=== PATIENT | female | born 1980 | race Caucasian/White ===

== ENCOUNTER 2022-04-06 16:59 | Outpatient (CLI) | payer OTHER, SELFPAY | END 2022-04-06 17:00 | disposition home or self-care (01) | PROVIDERS: PCP Physician Assistant Medical; Visit Provider Physician Assistant | DX: Z01.419 Encounter for gynecological examination (general) (routine) without abnormal findings (principal); Z12.4 Encounter for screening for malignant neoplasm of cervix; Z11.3 Encounter for screening for infections with a predominantly sexual mode of transmission | CPT/HCPCS: 87624; 88175 ==

== ENCOUNTER 2022-07-01 15:20 | Outpatient (CLI) | payer OTHER, SELFPAY ==
--- NOTE | 2022-07-01 15:40 | CRLHL7_ITS ---
For Patients: As a result of the Century Cures Act, medical imaging exams and procedure reports are released immediately into your electronic medical record. You may view this report before your referring provider. If you have questions, please contact your health care provider. BILATERAL SCREENING MAMMOGRAM WITH COMPUTER-AIDED DETECTION TECHNIQUE: CC and MLO views were obtained. These mammographic images have been obtained using full-field digital technique. These mammographic images were interpreted with the benefit of computer-aided detection. COMPARISON FILM: None. Baseline study. FINDINGS: The breasts are almost entirely fatty. IMPRESSION: There is no radiographic evidence for malignancy. ASSESSMENT: BI-RADS Category 1: Negative RECOMMENDATION: Routine screening mammogram in 1 year. A lay language report of this examination will be provided to the patient. ANDREA OSMAN M.D. Diagnostic/Nuclear Medicine Radiologist [email or web address] MEGHAN:[email or web address] Transcribed: 07/02/2022, 4:[address]/Dictated by: Andrea Osman MD @ 07/02/2022 9:14:00 AM (Electronically Signed)
== END 2022-07-01 15:21 | disposition home or self-care (01) ==
LOC: MAMMO 15:24
PROVIDERS: Visit Provider Physician Assistant
DX: Z12.31 Encounter for screening mammogram for malignant neoplasm of breast (principal)
CPT/HCPCS: 77067

== ENCOUNTER 2024-12-18 08:42 | Emergency (ER) | payer BC, SELFPAY ==
[2024-12-18 08:45] VITALS: BP 120/81; PULSE 107; RESP 18; TEMP 37.2; O2SAT 100; BMI 25.8
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
--- NOTE | 2024-12-18 09:08 | ED_ITS ---
HPI - General Adult General Chief complaint: Abdominal Pain Stated complaint: abdominal pain Time Seen by Provider: 12/18/24 08:53 Source: patient Mode of arrival: ambulatory Limitations: no limitations History of Present Illness HPI narrative: 44-year-old female presenting today with lower abdominal pain is present for 2 days. Moving makes it worse. Sitting still makes it better. She denies fevers or chills. Daily bowel movements have been soft. No mucus or blood in her stools. She denies any urinary symptoms such as increased frequency or urgency. No dysuria. Patient denies . She has been very nauseated today. States that this is very similar to when she had diverticulitis in the past. She has been trying to do some bowel rest over the last 24 hours her pain has been getting a little bit worse. She has required antibiotics in the past for symptom improvement. Past surgical history significant for appendectomy. Related Data Previous Rx's ?Medication ?Instructions ?Recorded nitrofurantoin 100 mg PO Q12H 5 days #10 ca ps 12/18/24 monohydrate/macrocrystals 100 mg capsule (Macrobid) Allergies Allergy/AdvReac Type Severity Reaction Status Date / Time penicillin V Allergy Unknown Throat Verified 12/18/24 10:24 swelling codiene Allergy Mild makes pt Uncoded 12/18/24 10:24 loopy Review of Systems Status of ROS: Reports: 10 or more systems reviewed and unremarkable except as noted in History and below [facility] Medical History Acute maxillary sinusitis ?J01.00 - Acute maxillary sinusitis, unspecified (ICD-10) Abdominal pain ?R10.9 - Unspecified abdominal pain (ICD-10) Chronic low back pain ?M54.50 - Low back pain, unspecified (ICD-10) ?G89.29 - Other chronic pain (ICD-10) Pneumoperitoneum ?K66.8 - Other specified disorders of peritoneum (ICD-10) Anxiety ?F41.9 - Anxiety disorder, unspecified (ICD-10) Diverticulitis ?K57.92 - Diverticulitis of intestine, part unspecified, without perforation or abscess without bleeding (ICD-10) Oral contraceptive prescribed ?Z30.011 - Encounter for initial prescription of contraceptive pills (ICD-10) Surgical History History of appendectomy ?Z90.49 - Acquired absence of other specified parts of digestive tract (ICD- 10) History of colonoscopy with polypectomy ?Z98.890 - Other specified postprocedural states (ICD-10) ?Z86.010 - Personal history of colonic polyps (ICD-10) History of ?Z98.891 - History of uterine scar from previous surgery (ICD-10) History of colposcopy ?Z98.890 - Other specified postprocedural states (ICD-10) Family History Maternal Grandmother Colon cancer Paternal Grandmother Ovarian cancer Sister Acute myeloid leukemia Social History Narrative: Nurse, 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 Engaged. Nonsmoker. No alcohol use. Denies concerns with safety or abuse. Smoking Status: Former smoker Exam Narrative: Exam Narrative: Well-nourished well-developed patient in no acute distress. Alert and oriented. Answers questions appropriately. Mood and affect are appropriate. Thoughts are goal oriented and rational. No tangential or magical thinking noted. Patient speaks in full sentences without needing to catch her breath. HEENT: Normocephalic atraumatic. Pupils are equally round reactive to light. Extraocular muscles are intact. Conjunctivae are moist without any icterus noted. Moist mucous membranes. Cardiovascular: Heart is regular rate and rhythm S1 and S2 are present without any murmurs. Lungs: Clear to auscultation bilaterally no wheezes rhonchi or rales are appreciated. Patient takes deep breaths without any discomfort. Abdomen: Soft and nondistended. She does have suprapubic as well as left and right lower quadrant tenderness. No epigastric tenderness. Normal bowel sounds. Extremities: Bilateral lower extremities are without edema. Skin: Well perfused without any obvious rashes. Const: Vital Signs, click to edit/add: Vital Signs - 24 hr 12/18/24 08:45 12/18/24 10:24 Temperature 99 F Pulse Rate [Right Pulse Oximeter] 107 H 87 Respiratory Rate 18 18 Blood Pressure [Ri ght Upper Arm] 120/81 118/80 Pulse Oximetry 100 97 Oxygen Delivery Me thod Room Air Room Air Course Course ED Course: Differential diagnoses includes diverticulitis, colitis, ectopic , UTI. Blood work was unremarkable aside from a slightly elevated CRP however, her UA had 2+ blood with 10-25 RBCs. Patient not currently menstruating. Therefore, we decided to proceed with an abdominal CT scan to differentiate whe ther or not patient had a kidney stone versus a cystitis. She was also experiencing more nausea so Zofran was given. CT scan did not show any evidence of diverticulitis, did show a right-sided ovarian cyst. Vital Signs Vital signs: Initial Vital Signs Temperature 99 F 12/18/24 08:45 Temperature Source Temporal Artery Scan 12/18/24 08:45 Pulse Rate 107 H 12/18/24 08:45 Pulse Rhythm Regular 12/18/24 08:45 Pulse Strength 3+ Normal 12/18/24 08:45 Respiratory Rate 18 12/18/24 08:45 Blood Pressure 120/81 12/18/24 08:45 Blood Pressure Mean 94 12/18/24 08:45 Blood Pressure Position Sitting 12/18/24 08:45 Pulse Oximetry 100 12/18/24 08:45 Oxygen Delivery Method Room Air 12/18/24 08:45 Vital Signs Temperature 99 F 12/18/24 08:45 Pulse Rate 107 H 12/18/24 08:45 Respiratory Rate 18 12/18/24 08:45 Blood Pressure 120/81 12/18/24 08:45 Pulse Oximetry 100 12/18/24 08:45 Oxygen Delivery Method Room Air 12/18/24 08:45 Temperature 99 F 12/18/24 08:45 Pulse Rate 87 12/18/24 10:24 Respiratory Rate 18 12/18/24 10:24 Blood Pressure 118/80 12/18/24 10:24 Pulse Oximetry 97 12/18/24 10:24 Oxygen Delivery Method Room Air 12/18/24 10:24 Medications Administered Medications: Discontinued Medications Generic Name Dose Route Start Last Admin Trade Name Freq PRN Reason Stop Dose Admin Ondansetron HCl 4 mg 12/18/24 10:00 12/18/24 10:24 Ondansetron 2 Mg/Ml Inj IVP 12/18/24 10:01 4 mg ONCE ONE Administration Medical Decision Making MDM Narrative Medical decision making narrative: 44-year-old female with lower abdominal discomfort. We discussed the possibility of a UTI causing her pain verses a ovarian cyst causing her pain. No evidence of diverticulitis on CT scan, would be very unusual for diverticulitis to be the cause of her pain. At this time we will treat with Macrobid b.i.d. for 5 days. If her pain is not improving over the next 2 days would recommend follow-up with primary care to discuss ultrasound of the pelvis. Lab Data Lab results reviewed: Yes I reviewed the patient's lab results Labs: Lab Results 12/18/24 12/18/24 Range/Units 09:05 09:15 WBC 9.30 (4.50-11.00) K/uL RBC 4.54 (4.00-5.20) m/uL Hgb 13.9 (12.0-16.0) gm/dL Hct 41.9 (33.0-51.0) % MCV 92 (80-100) fL MCH 31 (26-34) pg MCHC 33 (32-36) gm/dL RDW Coeff of Afshan 11.7 (11.5-15.5) % Plt Count 333 (140-440) K/uL Neut % (Auto) 75.6 H (42.0-72.0) % Lymph % (Auto) 15.5 L (20-44) % Upson % (Auto) 6.3 (0.0-11.0) % Eos % (Auto) 2.2 (0.0-7.0) % Baso % (Auto) 0.3 (0.0-3.0) % Neut # (Auto) 7.00 (1.7-7.0) K/uL Lymph # (Auto) 1.40 (0.90-2.90) K/uL Upson # (Auto) 0.60 (0.00-0.90) K/UL Eos # (Auto) 0.20 (0.00-0.50) K/uL Baso # (Auto) 0.03 (0.00-0.30) K/uL Abs Immat Gran (auto) 0.01 (0.00-0.30) K/uL Imm/Tot Granulo (auto) 0.1 % Sodium 137 (135-149) mmol/L Potassium 4.0 (3.6-5.1) mmol/L Chloride 105 (96-114) mmol/L Carbon Dioxide 27 (20-32) mmol/L Anion Gap 5 L (7-15) mEq/L BUN 9 (5-24) mg/dL Creatinine 0.9 (0.5-1.5) mg/dL Estimated Creat Clear 85.10 Estimated GFR 82 ml/min Glucose 92 (60-115) mg/dL Lactate 0.7 (0.5-1.9) mmol/L Calcium 9.0 (8.4-10.6) mg/dL Total Bilirubin 1.1 (0.1-1.5) mg/dL Direct Bilirubin 0.0 (0.0-0.5) mg/dL AST 24 (12-35) U/L ALT 17 (4-35) U/L Alkaline Phosphatase 81 (40-150) U/L C-Reactive Protein 3.4 H (0.5-1.0) mg/dL Total Protein 7.7 (6.0-8.3) g/dL Albumin 4.4 (3.3-5.0) g/dL Lipase 39 (23-300) U/L Urine Color Yellow (Yellow) Urine Appearance Clear (Clear) Urine pH 7.5 (5.0-8.5) Ur Specific [place] 1.020 (1.000-1.030) Urine Protein Negative (Negative) Urine Glucose (UA) Negative (Negative) Urine Ketones Negative (Negative) Urine Blood 2+ A (Negative) Urine Nitrite Negative (Negative) Urine Bilirubin Negative (Negative) Urine Urobilinogen 0.2 (0.2-1.0) Ur Leukocyte Esterase Negative (Negative) Urine RBC 10-25 A (0-2) Urine WBC 0-2 (0-5) Ur Squamous Epith Cells Few (None-Few) Urine Bacteria Few A (None) Urine HCG, Qual Negative (Negative) Imaging Data CT scan - abdomen: Attestation: I have reviewed the pertinent imaging results. Radiologist's impression: TECHNIQUE: CT abdomen and pelvis acquired with 85 cc Omnipaque 350 IV contrast. COMPARISON: 01/23/2021. FINDINGS: New 5 millimeter pleural left basilar nodule (series 3, image 7). No specific follow-up is required in low risk patient The liver is unremarkable. The gallbladder is unremarkable. No biliary ductal dilatation. Spleen is. Relative atrophy of the tail of the pancreas. No peripancreatic stranding. Adrenal glands are normal. The kidneys are unremarkable. Urinary bladder is partially distended. Thickening of a decompressed sigmoid colon, likely due to underdistention. No significant inflammatory fat stranding. There are scattered diverticula seen without CT evidence of acute diverticulitis. The appendix is surgically absent. Terminal ileum is unremarkable. Remainder of the small bowel is unremarkable. The stomach is partially distended. No free air. No ascites. No lymphadenopathy. Three centimeter right ovarian cyst (118). Prominent cervix, likely physiologic. Aorta is nonaneurysmal. Bone windows demonstrate no suspicious lytic or sclerotic lesion. Grade 1 anterolisthesis at L5-S1 due to bilateral pars defects. Moderate degenerative disc disease at that level. IMPRESSION: 1. A 3 centimeter right ovarian cyst. Follow-up pelvic ultrasound may be performed for further evaluation. Discharge Plan Discharge Clinical Impression: Abdominal pain, UTI (urinary tract infection), Ovarian cyst Patient Disposition: Home, Self-Care Condition: Stable Additional Instructions: The cause of your pain could be because of a bladder infection-we will treat this with an antibiotic twice per day for 5 days. The other thing that could be causing your pain is an ovarian cyst that was seen on the CT scan today. If your pain is not improving with antibiotic treatment over the next 48 hours, you should follow-up with your primary care provider to discuss doing an ultrasound of the pelvis to look at the cyst more closely. In the meantime you can take ibuprofen 600-800 mg 3 times per day with meals for pain management. You can also use a heating pad to the lower abdomen, 20 minutes at a time several times per day. Do not apply heat directly to the skin. Return to the emergency department if you develop a fever, vomiting or pain that you cannot control. Prescriptions: New nitrofurantoin monohyd/m-cryst [Macrobid] 100 mg capsule 100 mg PO Q12H 5 Days Qty: 10 0RF Rx Instructions: must administer with a meal/food Follow Up/Referrals: Provider,Not a Local [Non-Staff, Family Practice] Stand Alone Forms: MyHealth Info Instructions
[2024-12-18 09:12] LABS: Appearance Urine Clear (Clear)
[2024-12-18 09:15] LABS: Ur HCG Qualitative* Negative (Negative)
[2024-12-18 09:21] LABS: Lactate* 0.7 mmol/L (0.5-1.9)
[2024-12-18 09:27] LABS: Hematocrit* 41.9 % (33.0-51.0); Hemoglobin* 13.9 gm/dL (12.0-16.0); Immature Granulocytes Abs Auto 0.01 K/uL (0.00-0.30); Immature Granulocytes Pct Auto 0.1 %; Mean Corpuscular HGB Conc 33 gm/dL (32-36); Mean Corpuscular Hemoglobin 31 pg (26-34); Mean Corpuscular Volume 92 fL (80-100); RDW Coefficient of Variation % 11.7 % (11.5-15.5); Red Blood Count* 4.54 m/uL (4.00-5.20); White Blood Count* 9.30 K/uL (4.50-11.00)
[2024-12-18 09:37] LABS: Lymphocytes Absolute Auto 1.40 K/uL (0.90-2.90)
[2024-12-18 09:39] LABS: Slide Review Reflex No
[2024-12-18 09:43] LABS: Albumin* 4.4 g/dL (3.3-5.0); Chloride* 105 mmol/L (96-114); Potassium* 4.0 mmol/L (3.6-5.1); Sodium* 137 mmol/L (135-149)
[2024-12-18 09:46] LABS: Alanine Aminotransferase* 17 U/L (4-35); Alkaline Phosphatase* 81 U/L (40-150); Anion Gap 5 mEq/L (7-15); Aspartate Amino Transferase* 24 U/L (12-35); Bilirubin Direct* 0.0 mg/dL (0.0-0.5); Bilirubin Total* 1.1 mg/dL (0.1-1.5); Blood Urea Nitrogen* 9 mg/dL (5-24); Calcium* 9.0 mg/dL (8.4-10.6); Carbon Dioxide* 27 mmol/L (20-32); Creatinine* 0.9 mg/dL (0.5-1.5); Est. Creatinine Clearance* 85.10; Estimated Glomerular Filt Rate 82 ml/min; Glucose* 92 mg/dL (60-115); Total Protein* 7.7 g/dL (6.0-8.3)
--- NOTE | 2024-12-18 09:58 | CT_ITS ---
Patient: PACO BRITT Facility:?[facility] Patient ID:?[id number] Site Patient ID:?[id number]. Site :?[id number] Study:?CT-Abdomen/Pelvis 85CC ISOVUE 370-12/18/2024 10:23:07 AM Ordering Physician:Clinton Hinds Final Report: INDICATION: Lower abdominal pain. TECHNIQUE: CT abdomen and pelvis acquired with 85 cc Omnipaque 350 IV contrast. COMPARISON: 01/23/2021. FINDINGS: New 5 millimeter pleural left basilar nodule (series 3, image 7). No specific follow-up is required in low risk patient The liver is unremarkable. The gallbladder is unremarkable. No biliary ductal dilatation. Spleen is. Relative atrophy of the tail of the pancreas. No peripancreatic stranding. Adrenal glands are normal. The kidneys are unremarkable. Urinary bladder is partially distended. Thickening of a decompressed sigmoid colon, likely due to underdistention. No significant inflammatory fat stranding. There are scattered diverticula seen without CT evidence of acute diverticulitis. The appendix is surgically absent. Terminal ileum is unremarkable. Remainder of the small bowel is unremarkable. The stomach is partially distended. No free air. No ascites. No lymphadenopathy. Three centimeter right ovarian cyst (118). Prominent cervix, likely physiologic. Aorta is nonaneurysmal. Bone windows demonstrate no suspicious lytic or sclerotic lesion. Grade 1 anterolisthesis at L5-S1 due to bilateral pars defects. Moderate degenerative disc disease at that level. IMPRESSION: 1. A 3 centimeter right ovarian cyst. Follow-up pelvic ultrasound may be performed for further evaluation. Please note that all CT scans at this facility use dose modulation, iterative reconstruction, and/or weight-based dosing when appropriate to reduce radiation dose to as low as reasonably achievable. Dictated by Dionicio Otero MD @ 12/18/2024 10:31:03 AM Signed by:?Dionicio Otero MD @12/18/2024 10:31:03 AM (Electronic Signature)
[2024-12-18 10:24] VITALS: BP 118/80; PULSE 87; RESP 18; O2SAT 97
[2024-12-18] MEDS: ONDANSETRON 2 MG/ML inj 4 MG IVP (10:24)
== END 2024-12-18 11:06 | disposition home or self-care (01) ==
PROVIDERS: Emergency Provider Family Medicine; PCP Family Medicine
DX: N39.0 Urinary tract infection, site not specified (principal); N83.201 Unspecified ovarian cyst, right side
CPT/HCPCS: 36415; 74177; 80048; 80076; 81001; 81025; 83605; 83690; 85025; 86140; 87086; 96374; 99284; J2405; Q9967